=== PATIENT | male | born 1965 | race Caucasian/White ===

== ENCOUNTER 2018-05-18 12:51 | Emergency (ER) | payer OTHER ==
[~2018-05-18] VITALS: Ht 185.4 cm; Wt 113.9 kg
[~2018-05-18 12:51] MED LIST: COZAAR100 MG; FLUOXETINE HCL20 MG; GLIPIZIDE10 MG; METFORMIN HCL500 MG
[2018-05-18] MEDS ORDERED: VYTORIN 10-401 EACH PO (13:05)
[2018-05-18] MEDS ORDERED: SEROQUEL XR300 MG PO (13:06)
== END 2018-05-18 15:03 | disposition home or self-care (01) ==
LOC: ER 12:51
DX: K57.30 Diverticulosis of large intestine without perforation or abscess without bleeding (principal); M54.5 Low back pain

== ENCOUNTER 2019-03-07 08:35 | Emergency (ER) | payer OTHER ==
[~2019-03-07] VITALS: Ht 203.2 cm; Wt 120.2 kg
[~2019-03-07 08:35] MED LIST changes: +SEROQUEL XR300 MG PO; +VYTORIN 10-401 EACH PO
[2019-03-07] MEDS ORDERED: KETO10TA2 PO (10:37)
[2019-03-07] MEDS ORDERED: ORPHENADRINE C100 MG PO (10:37)
== END 2019-03-07 10:49 ==
LOC: ER 08:35
DX: R25.2 Cramp and spasm (principal); M25.532 Pain in left wrist